=== PATIENT | female | born 2005 | race Caucasian/White ===

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

== ENCOUNTER → 2024-07-26 | Outpatient (CLI) | payer OTHER | END | disposition home or self-care (01) | LOC: LAB 15:12 → LAB SHORT 15:12 | DX: R30.0 Dysuria (principal) | CPT/HCPCS: 87086 ==